=== PATIENT | female | born 1990 | race Caucasian/White ===

== ENCOUNTER 2016-11-18 22:27 | Emergency (ER) | payer SELFPAY ==
[~2016-11-18] VITALS: Ht 157.5 cm; Wt 54.0 kg
[2016-11-18 22:37] VITALS: BP 122/80
[2016-11-18] MEDS ORDERED: KETOROLAC 60MG/2ML VIAL IM ONE (23:15)
== END 2016-11-19 00:24 | disposition home or self-care (01) ==
LOC: ER 22:36
DX: M54.2 Cervicalgia (principal); M54.5 Low back pain; M79.1 Myalgia; V49.49XA Driver injured in collision with other motor vehicles in traffic accident, initial encounter; Y93.89 Activity, other specified; Y92.488 Other paved roadways as the place of occurrence of the external cause; Z88.0 Allergy status to penicillin
CPT/HCPCS: 96372; 99283; J1885